=== PATIENT | male | born 1950 | race Caucasian/White ===

== ENCOUNTER → 2018-04-11 09:22 | Outpatient (CLI) | payer MEDICARE, OTHER ==
[2016-01-28 10:30] VITALS: BMI 35.0
[~2018-04-11 09:22] MED LIST: ASPIRIN EC81 M1 PO; ASPIRIN325 MG PO; BRILINTA90 MG PO; CALTRATE 600 M600 M1 PO; DICLOFENAC SODI50 MG PO; HYDROCODONE-APA1 TAB PO; LEVOTHROID112 MCG PO; LISINOPRIL2.5 MG PO; ONGLYZA5 MG PO; PRILOSEC20 MG PO; PRINIVIL20 MG PO; ROCALTROL0.25 MCG PO; ROCALTROL0.5 MCG PO; SYNTHROID100 MCG PO; TENORMIN50 MG PO; THEREMS-M1 TAB PO
== END | disposition home or self-care (01) ==
LOC: D.MRI 04-10 11:30
DX: M50.00 Cervical disc disorder with myelopathy, unspecified cervical region (principal)

== ENCOUNTER → 2018-12-20 07:36 | Outpatient (CLI) | payer MEDICARE, OTHER ==
[2016-01-28 10:30] VITALS: BMI 35.0
--- NOTE | 2018-12-23 09:50 | ST ---
PATIENT:ADAM JIMÉNEZ MEDICAL RECORD: [id number] SEX: M LOCATION:[facility] ORDER #: ADMISSION DATE: 12/20/18 AGE OF PATIENT: 68 REFERRING PHYSICIAN: INTERPRETING PHYSICIAN: RENETTA IRVIN MD DATE OF SERVICE: 12/20/2018 Nuclear Stress Test INDICATION: Angina, coronary artery disease, shortness of breath, hypertension, and hyperlipidemia. He was exercised on standard Lexiscan protocol with 27 mCi of sestamibi injected at peak stress, 9 mCi were used previously for rest images. FINDINGS: Gated SPECT reveals preserved ejection fraction at 59% with good wall motion and thickening and brightening throughout all segments. SPECT imaging Cardiolite was used as myocardial fusion agent. There is homogeneous uptake throughout all segments at rest and stress with no evidence of inducible ischemia or previous infarction. OVERALL IMPRESSION: 1. This is a normal nuclear stress test with no evidence of inducible ischemia or previous infarction. 2. Gated SPECT reveals a preserved ejection fraction at 59%. In this patient with ongoing symptomatology, the current scan does not suggest the presence of hemodynamically significant coronary artery disease. Evaluate noncardiac etiology of chest pain. TRANSINT:[id number] Voice Confirmation ID: [id number] DOCUMENT ID: [id number] RENETTA IRVIN MD at 0950 CC: NOEMI MIXON [id number] DICTATION DATE: 12/20/18 1419 APPRAISAL TECHNICIAN: 12/21/18 0027 [facility] CLI 12/20/18 [place] [id number] [place] [id number]
== END | disposition home or self-care (01) ==
LOC: D.HCCARDIO 07:36
PROVIDERS: ATTEND Internal Medicine Interventional Cardiology
DX: I25.10 Atherosclerotic heart disease of native coronary artery without angina pectoris (principal)

== ENCOUNTER 2019-01-08 07:19 | Day surgery (SDC) | payer MEDICARE, OTHER ==
[2019-01-03 15:19] LABS: BASOPHILS 0.5 % (0-2); HEMATOCRIT 38.7 % (42.0-54.0); HEMOGLOBIN 13.3 g/dL (13.5-17.5); IMMATURE GRANULOCYTES 1.4 % (0-5); LYMPHOCYTES 28.7 % (15-50); MCH 30.9 pg (26.0-34.0); MCHC 34.4 g/dL (31.0-37.0); MEAN PLATELET VOLUME 9.8 fL (7.4-10.4); MONOCYTES 10.3 % (2-11); NEUTROPHILS 57.1 % (40-80); PLATELET COUNT 272 10x3/uL (130-400); RDW 13.7 % (11.5-14.5); WBC 10.8 10x3/uL (4.8-10.8)
[2019-01-03 15:37] LABS: ANION GAP 11.5 mmol/L (8-16); CALCIUM 9.1 mg/dL (8.5-10.1); CARBON DIOXIDE 30.1 mmol/L (21.0-32.0); CREATININE - SERUM 1.3 mg/dL (0.6-1.3); POTASSIUM - SERUM 4.6 mmol/L (3.5-5.1)
[~2019-01-08] VITALS: Ht 185.4 cm; Wt 127.0 kg
[~2019-01-08 07:19] MED LIST changes: +LANTUS INSULIN10 ML SC; +METFORMIN HCL500 M1 PO; +NOVOLIN 70/30 110 ML SC
[2019-01-08] MEDS ORDERED: NOVOLOG100 UNIT/1 SC (08:52)
[2019-01-08 08:58] VITALS: BP 115/56; Ht 185.4 cm; Wt 127.0 kg
== END 2019-01-08 13:45 | disposition home or self-care (01) ==
LOC: D.OPS 07:19 → D.PAN 09:30 → D.OPS 13:45
PROVIDERS: ATTEND Orthopaedic Surgery
DX: M65.321 Trigger finger, right index finger (principal); Z01.812 Encounter for preprocedural laboratory examination

== ENCOUNTER 2019-02-13 05:20 | Day surgery (SDC) | payer MEDICARE, OTHER ==
[2019-02-12 10:32] LABS: HEMATOCRIT 42.4 % (42.0-54.0); HEMOGLOBIN 14.6 g/dL (13.5-17.5); MCH 30.4 pg (26.0-34.0); MCHC 34.4 g/dL (31.0-37.0); MCV 88.3 fL (80.0-100.0); MEAN PLATELET VOLUME 9.7 fL (7.4-10.4); PLATELET COUNT 276 10x3/uL (130-400); RDW 13.6 % (11.5-14.5); WBC 11.6 10x3/uL (4.8-10.8)
[2019-02-12 10:42] LABS: ANION GAP 12.3 mmol/L (8-16); CALCIUM 10.2 mg/dL (8.5-10.1); CARBON DIOXIDE 29.5 mmol/L (21.0-32.0); CREATININE - SERUM 1.5 mg/dL (0.6-1.3); POTASSIUM - SERUM 4.8 mmol/L (3.5-5.1)
[2019-02-12 16:01] LABS: LYMPHOCYTES 40 % (15-50); MONOCYTES 2 % (2-11); NEUTROPHILS 58 % (40-80); PLATELET ESTIMATE NORMAL
[~2019-02-13] VITALS: Ht 185.4 cm; Wt 127.0 kg
[~2019-02-13 05:20] MED LIST changes: +NOVOLOG100 UNIT/1 SC; +NOVOLOG100 UNIT/1 SQ
[2019-02-13 06:55] VITALS: BP 108/63; Ht 185.4 cm; Wt 127.0 kg
--- NOTE | 2019-02-13 07:56 | NUR ---
PILLOW UNDER LEFT SIDE TO TAKE PRESSURE OFF RIGHT SHOULDER
--- NOTE | 2019-02-13 09:29 | NUR ---
0922 IV DC'D. CATHETER TIP INTACT. PRESSURE HELD UNTIL BLEEDING CEASED. BANDAID APPLIED.
== END 2019-02-13 09:33 | disposition home or self-care (01) ==
LOC: D.OPS 05:20 → D.PAN 07:30 → D.OPS 07:30
PROVIDERS: Anesthesiology; ATTEND Orthopaedic Surgery
DX: M65.321 Trigger finger, right index finger (principal); Z01.812 Encounter for preprocedural laboratory examination

== ENCOUNTER 2019-06-10 18:18 | Inpatient (IN) | payer MEDICARE, OTHER ==
[~2019-06-10] VITALS: Ht 185.4 cm; Wt 129.5 kg
--- NOTE | ~2019-06-10 | EC ---
PATIENT:ADAM JIMÉNEZ DATE OF SERVICE: 06/10/19 SEX: M MEDICAL RECORD: [id number] DATE OF : [birth year] LOCATION:D.M2 D.210 AGE OF PATIENT: 69 ADMISSION DATE: 06/10/19 REFERRING PHYSICIAN: INTERPRETING PHYSICIAN: RENETTA BROWN MD ECHOCARDIOGRAM REPORT ECHO CHARGES 4 ECHO COMPLETE Date: 06/12/19 CLINICAL DIAGNOSIS: SOB ECHOCARDIOGRAPHIC MEASUREMENTS (adult normal given) AC root (d.<3.7cm) 3.3 cm LV Septum d (<1.2 cm> 1.2 cm Valve Excursion 1.7 cm LV Septum (systole) 1.9 cm Left Atria (s.<4.0cm> 4.1 cm LVPW d(<1.2cm) 1.4 cm RV (d.<2.3cm) 3.5 cm LVPW (sytole) 2.2 cm LV diastole(<5.6CM) 5.7 cm MV E-F(>70mm/sec) cm LV systole 3.4 cm LVOT Diameter 1.9 cm MV exc.(>10mm) cm Est.ejection fraction (50-75%) % DOPPLER: LVIT cm/sec A 53.0 cm/sec E 122 cm/sec LA cm/sec RVSP 26.1 mmHg LVOT 75.0 cm/sec AOP1/2T m/s Asc. Ao 172 cm/sec RVOT 49.0 cm/sec RA cm/sec PA 74.0 cm/sec AV Gradient Peak 12.0 mmHg AV Mean 6.4 mmHg AV Area 1.1 cm MV Gradient Peak 7.0 mmHg MV Mean 2.2 mmHg MV Area cm COMMENTS: Deli Associate: Godfrey SHERWOODOE Web Methods Developer: 1 Dr. Brown TAPE# PACS Pericardial Effusion N DATE OF SERVICE: 06/12/2019 FINDINGS: 1. Left ventricular chamber size is mildly dilated. Left ventricular systolic function is preserved at 50% to 55%. 2. Left atrium is enlarged at 4.1 cm. Right atrium and right ventricular chamber sizes are as well mildly dilated. 3. Valvular structures have normal structure and motion. 4. Doppler interrogation reveals no significant valvular insufficiency or stenosis. Pulmonary systolic pressure is estimated at 26 mmHg. ECHOCARDIOGRAM REPORT [id number] DAAM JIMÉNEZ 5. No evidence of pericardial effusion or left ventricular thrombus. TRANSINT:[id number] Voice Confirmation ID: [id number] DOCUMENT ID: [id number] RENETTA BROWN MD CC: [id number] DICTATION DATE: 06/13/19 1309 ASIAN STUDIES PROGRAM CHAIR: 06/13/19 1722 ADM IN [facility] [address] [place] [address]
[2019-06-10 18:56] LABS: BASOPHILS 0.2 % (0-2); EOSINOPHILS 0.1 % (0-7); HEMATOCRIT 42.6 % (42.0-54.0); HEMOGLOBIN 14.1 g/dL (13.5-17.5); LYMPHOCYTES 7.6 % (15-50); MCH 29.8 pg (26.0-34.0); MCHC 33.1 g/dL (31.0-37.0); MCV 90.1 fL (80.0-100.0); MEAN PLATELET VOLUME 9.7 fL (7.4-10.4); MONOCYTES 12.6 % (2-11); NEUTROPHILS 78.5 % (40-80); PLATELET COUNT 278 10x3/uL (130-400); RBC 4.73 10x6/uL (4.20-6.10); RDW 14.1 % (11.5-14.5); WBC 19.5 10x3/uL (4.8-10.8)
[2019-06-10 18:58] LABS: APTT 30.3 SECONDS (22.8-39.4); INR 1.11 (0.85-1.17); PROTIME 13.8 SECONDS (11.6-15.0)
[2019-06-10 19:04] LABS: CALC OSMOLALITY 279 mosm/kg (275-300); CALCIUM 8.1 mg/dL (8.5-10.1); CARBON DIOXIDE 24.6 mmol/L (21.0-32.0); CHLORIDE - SERUM 99 mmol/L (98-107); CREATININE - SERUM 1.6 mg/dL (0.6-1.3); GLUCOSE 175 mg/dL (74-106); POTASSIUM - SERUM 4.7 mmol/L (3.5-5.1); SODIUM 135 mmol/L (136-145); UREA NITROGEN 29 mg/dL (7-18); eGFR NON AFRICAN AMERICAN 46 mL/min (90-120)
[2019-06-10 19:21] LABS: ALBUMIN 3.8 g/dL (3.4-5.0); ALKALINE PHOSPHATASE 104 U/L (46-116); ALT (SGPT) 41 U/L (10-68); BILIRUBIN - TOTAL 1.25 mg/dL (0.2-1.3); CKMB 3.5 U/L (0.0-3.6); CREATINE KINASE 207 UL (21-232); PRO BNP 55 pg/mL (0-125); PROTEIN - SERUM 7.6 g/dL (6.4-8.2)
[2019-06-10 19:22] LABS: TROPONIN-I < 0.017 ng/mL (0.000-0.060)
[2019-06-10 20:25] LABS: APPEARANCE CLEAR (CLEAR); BILIRUBIN NEGATIVE (NEGATIVE); COLOR YELLOW (YELLOW); GLUCOSE 50 mg/dL (NEGATIVE); KETONE NEGATIVE (NEGATIVE); NITRITE NEGATIVE (NEGATIVE); PROTEIN TRACE mg/dL (NEGATIVE); SPECIFIC GRAVITY 1.025 (1.005-1.020); UROBILINOGEN NORMAL (NORMAL)
[2019-06-10 22:30] VITALS: BP 127/51
[2019-06-11 01:21] VITALS: BP 127/68
[2019-06-11 04:00] VITALS: BP 130/67
[2019-06-11 04:41] LABS: BASOPHILS 0.1 % (0-2); EOSINOPHILS 0 % (0-7); HEMATOCRIT 39.4 % (42.0-54.0); HEMOGLOBIN 13.1 g/dL (13.5-17.5); IMMATURE GRANULOCYTES 0.8 % (0-5); LYMPHOCYTES 7.5 % (15-50); MCH 30.2 pg (26.0-34.0); MCHC 33.2 g/dL (31.0-37.0); MCV 90.8 fL (80.0-100.0); MEAN PLATELET VOLUME 9.8 fL (7.4-10.4); MONOCYTES 4.1 % (2-11); NEUTROPHILS 87.5 % (40-80); PLATELET COUNT 245 10x3/uL (130-400); RBC 4.34 10x6/uL (4.20-6.10); RDW 14.1 % (11.5-14.5); WBC 17.7 10x3/uL (4.8-10.8)
[2019-06-11 05:09] LABS: ALBUMIN 3.3 g/dL (3.4-5.0); ANION GAP 14.5 mmol/L (8-16); BILIRUBIN - TOTAL 1.38 mg/dL (0.2-1.3); CALCIUM 7.9 mg/dL (8.5-10.1); CARBON DIOXIDE 24.9 mmol/L (21.0-32.0); CREATININE - SERUM 1.6 mg/dL (0.6-1.3); POTASSIUM - SERUM 4.4 mmol/L (3.5-5.1); PROTEIN - SERUM 7.6 g/dL (6.4-8.2)
--- NOTE | 2019-06-11 06:02 | NUR ---
PT RECEIVED SLEEPING IN BED WITH CPAP ON. FAMILY SLEEPING AT BEDSIDE. IV INFUSING. CALL LIGHT CLOSE.
[2019-06-11 07:59] VITALS: BP 132/68
[2019-06-11 11:23] VITALS: BP 115/41
[2019-06-11 15:47] VITALS: BP 114/53
--- NOTE | 2019-06-11 19:33 | NUR ---
EVENING ROUNDS COMPLETE, PT LAYING IN BED, NO SIGNS OF DISTRESS. AAOX4, PT DENIES ANY PAIN OR NEEDS AT THIS TIME. CL IN REACH, BED IN LOWEST POSITION.
[2019-06-11 20:00] VITALS: BP 109/50
[2019-06-12 01:08] VITALS: BP 96/49
[2019-06-12 05:20] LABS: BASOPHILS 0.2 % (0-2); EOSINOPHILS 0.5 % (0-7); HEMATOCRIT 35.7 % (42.0-54.0); HEMOGLOBIN 11.9 g/dL (13.5-17.5); LYMPHOCYTES 25.9 % (15-50); MCH 30.4 pg (26.0-34.0); MCHC 33.3 g/dL (31.0-37.0); MCV 91.3 fL (80.0-100.0); MONOCYTES 11.9 % (2-11); NEUTROPHILS 60.5 % (40-80); PLATELET COUNT 246 10x3/uL (130-400); RBC 3.91 10x6/uL (4.20-6.10); RDW 14.5 % (11.5-14.5)
[2019-06-12 05:32] VITALS: BP 101/49
[2019-06-12 05:43] LABS: CALCIUM 8.3 mg/dL (8.5-10.1); CARBON DIOXIDE 25.1 mmol/L (21.0-32.0); CHOL - HDL RATIO 3.4 ratio (2.3-4.9); CREATININE - SERUM 1.3 mg/dL (0.6-1.3); POTASSIUM - SERUM 4.1 mmol/L (3.5-5.1)
--- NOTE | 2019-06-12 07:22 | NUR ---
PT RECEIVED SLEEPING IN BED. WOKE WITH VOICE AND BEDSIDE REPORT GIVEN. NO COMPLAINTS OR NEEDS AT PRESENT.
--- NOTE | 2019-06-12 07:46 | HP ---
PATIENT: ADAM JIMÉNEZ MEDICAL RECORD: [id number] ACCOUNT: [id number] LOCATION:[address] : [birth year] ADMISSION DATE: 06/10/19 PCP: NOEMI MIXON MD HISTORY AND PHYSICAL EXAMINATION REASON FOR ADMISSION: Nausea, headache, abdominal pain, and shortness of breath. HISTORY OF PRESENT ILLNESS: The patient is a 69-year-old male with history of diabetes mellitus and CAD. 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 He pulled into a gas station and drank some water and became more nausea and developed a severe frontal headache. His was with him and she broke brought him back to [place]. His headache improved somewhat. In fact, he went to [facility] to have a birthday republican with his grandson, but could not eat. After the republican he told his that he needs to go to the ED. He also had some vague right upper quadrant discomfort. He had normal bowel movement that day and he denied any jac vomiting, but did retch. He denies any recent tick bites. Denies any fever. No history of migraines. Additionally, he has had trouble with exertional shortness of breath. He said he gets tightness in his chest when he walks a distance. He had a negative Cardiolite stress test by Dr. Brown in December of this year, prior to trigger finger release. PAST MEDICAL HISTORY: Type 2 diabetes mellitus, hyperparathyroidism post-parathyroidectomy, hypertension, hyperlipidemia, obesity, hypocalcemia postoperative, hypothyroidism, osteoarthritis, CAD post-PTCA in 2012. SURGICAL HISTORY: He had a gastric bypass with incidental cholecystectomy. He has had rotator cuff repair, release of hand scar flexure contraction, parathyroidectomy, recent trigger finger release, carpal tunnel release, a remote left ankle bimalleolar fracture with repair. FAMILY HISTORY: Parents are . History of heart disease in the family and hypertension. SOCIAL HISTORY: Nonsmoker, nondrinker. He is , retired . He gets most of his healthcare at the [facility] clinic in [place]. CURRENT MEDICATIONS: Lantus 20 units subQ q.p.m., diclofenac 50 mg p.o. b.i.d. p.c., metformin ER 500 mg b.i.d., levothyroxine 200 mcg p.o. q.a.m., atenolol 50 mg a day, sliding scale regular insulin as directed, cyclobenzaprine 10 mg at bedtime p.r.n., tamsulosin 0.4 at bedtime, omeprazole 20 mg a day, atorvastatin 20 mg at bedtime, aspirin 81 mg a day. REVIEW OF SYSTEMS: CONSTITUTIONAL: [place] well until onset of symptoms. Denies fever. HEENT: No recent visual change, sinus congestion, or sore throat. RESPIRATORY: Has mild exertional shortness of breath with chest tightness on exertion. Intermittent cough, nonproductive. CARDIAC: Exertional chest tightness, but he would not describe angina. No palpitations, PND, orthopnea, claudication. GASTROINTESTINAL: Marked nausea with retching today. No change in stools or blood per rectum. Some vague right upper quadrant pain. GENITOURINARY: Nocturia once nightly. HISTORY AND PHYSICAL [id number] ADAM JIMÉNEZ ENDOCRINE: Denies polyuria, polydipsia, heat or cold intolerance. NEUROLOGIC: No history of stroke, TIA, vascular headaches, or seizures. INTEGUMENT: No rash or itching. PHYSICAL EXAMINATION: GENERAL: Alert male, appears moderately ill. VITAL SIGNS: Blood pressure 140/80, heart rate is 90 and regular, he is afebrile, sats 95% on room air. HEENT: Normocephalic. Eyes are clear. NECK: No bruits or masses. CHEST: Clear without wheeze or rales. Chest wall is nontender. HEART: Regular without murmur. ABDOMEN: Obese, mildly tender in the right upper quadrant. Liver edge appears enlarged. GENITOURINARY: Deferred. EXTREMITIES: He has postoperative surgical changes in both hands and shoulders. NEUROLOGIC: He is oriented to person, place, and time. Cranial nerves intact. Gait is normal. Memory is intact. NECK: Supple. LABORATORY DATA: His white count was over 20,000 on admission without identifiable source. DIAGNOSTIC DATA: CT of the head was unremarkable. Chest x-ray was clear. Emergency Room physician cultured the patient, placed him on Rocephin and Zithromax. ASSESSMENT: Intractable nausea with crescendo headache, etiology unknown; leukocytosis, etiology unknown; DOMINGUEZ; CAD; AODM; history of hypothyroidism; history of hyperparathyroidism. PLAN: The patient will be given IV fluids. We will hold metformin due to mildly elevated creatinine. We will check abdominal CT with contrast concerning abdominal pain and leukocytosis. Further workup pending clinical course. TRANSINT:[id number] Voice Confirmation ID: [id number] DOCUMENT ID: [id number] NOEMI MIXON MD at 0746 CC: [id number] DICTATION DATE: 06/11/19 08 DIAGNOSTIC IMAGING MANAGER: 06/11/19 1129 ADM IN [place] [id number] [place] [address]
[2019-06-12 08:25] LABS: CKMB 6.1 U/L (0.0-3.6)
[2019-06-12 08:41] LABS: TROPONIN-I 0.066 ng/mL (0.000-0.060)
[2019-06-12 08:57] VITALS: Ht 185.4 cm; Wt 129.5 kg
[2019-06-12 10:39] VITALS: BP 128/71
[2019-06-12 13:19] VITALS: BP 129/78
[2019-06-12 18:10] VITALS: BP 118/68
[2019-06-12 21:28] VITALS: BP 123/75
[2019-06-13] VITALS: BP 123/61
[2019-06-13 04:00] VITALS: BP 138/67
[2019-06-13 04:44] LABS: BASOPHILS 0.5 % (0-2); EOSINOPHILS 1.5 % (0-7); HEMATOCRIT 38.5 % (42.0-54.0); HEMOGLOBIN 12.5 g/dL (13.5-17.5); IMMATURE GRANULOCYTES 1.8 % (0-5); LYMPHOCYTES 33.1 % (15-50); MCH 29.8 pg (26.0-34.0); MCHC 32.5 g/dL (31.0-37.0); MCV 91.7 fL (80.0-100.0); MEAN PLATELET VOLUME 9.8 fL (7.4-10.4); MONOCYTES 13.6 % (2-11); NEUTROPHILS 49.5 % (40-80); PLATELET COUNT 254 10x3/uL (130-400); RDW 14.2 % (11.5-14.5); WBC 10.8 10x3/uL (4.8-10.8)
[2019-06-13 04:53] LABS: CALCIUM 8.8 mg/dL (8.5-10.1); CREATININE - SERUM 1.3 mg/dL (0.6-1.3)
--- NOTE | 2019-06-13 07:43 | NUR ---
PT RECEIVED LAYING IN BED, AT BEDSIDE AND DR MIXON IN ROOM AT PRESENT. NPO WITHOUT CAFFEINE FOR NOW TILL STRESS TEST.
[2019-06-13 13:21] VITALS: BP 137/68
[2019-06-13 17:19] VITALS: BP 133/57
--- NOTE | 2019-06-13 19:24 | NUR ---
RECEIVED UP IN BED WITH EYES OPEN AND TV ON. ALERT AND ORIETNED X4. UP AD DONOVAN TO B/R. IV TO LEFT FA WITH NS AT 75CC/HR. TELEMETRY IN PLACE. EDUCATED ON DIABETES S/S OF HYPO AND HYPERGLYCEMIA. VOICED UNDERSTANDING. DENIES ANY OTHER NEEDS.
[2019-06-13 20:30] VITALS: BP 143/53
[2019-06-14 00:30] VITALS: BP 153/75
[2019-06-14 06:42] VITALS: BP 127/65
--- NOTE | 2019-06-14 07:36 | NUR ---
PT RESTING PEACEFULLY WHEN I ENTERED, RESPIRATIONS EVEN/REGULAR AND UNLABORED. NO SIGNS OR SYMPTOMS OF ACUTE DISTRESS NOTED AT THIS TIME. CL IN REACH, SRX2. NO FAMILY PRESENT AT BEDSIDE.
[2019-06-14 08:06] VITALS: BP 137/59
[2019-06-14] MEDS ORDERED: ZITHROMAX250 MG PO (09:00)
--- NOTE | 2019-06-14 09:26 | NUR ---
PT STATES HE HAS HAD HIS FLU SHOT THIS YEAR.
--- NOTE | 2019-06-14 09:56 | MORECARE ---
CASE MANAGEMENT DISCHARGE SUMMARY PATIENT: ADAM JIMÉNEZ UNIT: [id number] ADM DATE: 06/10/19 AGE: 69 : [birth year] SEX: M ROOM/BED: D.2107 AUTHOR: JOHN ASHRAF PHYSICIAN: REFERRING PHYSICIAN: NOEMI MIXON MD DATE OF SERVICE: 06/14/19 Discharge Plan Patient Name: ADAM JIMÉNEZ [facility] [facility] 1950 Planned Disposition: Home Anticipated Discharge Date: Discharge Date: Expected LOS: Initial Reviewer: [email or web address] Initial Review Date: 06/10/2019 Generated: 06/14/19 10:55 am Coverage Notice Reviewer: [email or web address] - Trupti Garcia Notice Issued Date-Time: 06/14/2019 9:30 Notice Type: IM Discharge Notice Notice Delivered To: Patient Relationship to Patient: Marketing Operations Specialist Name: Delivery Method: HAND - Hand Delivered Romi Days: Prior Verbal Notification: Recipient Understood Notice: Recipient Signature: Med Rec Note Co-signed by Attending: Coverage Notice Comment: Patient Name: ADAM JIMÉNEZ Page [phone] at 0956 All edits/amendments must be made on the electronic document DICTATION DATE: 06/14/19954 BULL FIDDLE PLAYER: SAVAGE 06/14/19954 RPT#: [id number] DC DATE: STATUS: ADM IN [facility] [address] [place] [address] END OF REPORT
--- NOTE | 2019-06-14 09:58 | NUR ---
I/V OUT TIP INTACT, NO COMPLAINTS OR CONCERNS, STATES THAT HIS WILL BE HERE "IN A BIT". CL IN REACH, SRX2.
--- NOTE | 2019-06-14 10:02 | MORECARE ---
CASE MANAGEMENT DISCHARGE SUMMARY PATIENT: ADAM JIMÉNEZ UNIT: [id number] ADM DATE: 06/10/19 AGE: 69 : 49 SEX: M ROOM/BED: D.2107 AUTHOR: JOHN ASHRAF PHYSICIAN: REFERRING PHYSICIAN: NOEMI MIXON MD DATE OF SERVICE: 06/14/19 Discharge Plan Patient Name: ADAM JIMÉNEZ Facility: [facility]:[place] : 1950 Planned Disposition: Home Anticipated Discharge Date: Discharge Date: Expected LOS: Initial Reviewer: [email or web address] Initial Review Date: 06/10/2019 Generated: 06/14/19 11:02 am Comments DCP- Discharge Planning Updated by [email or web address]: Trupti Garcia on 06/14/19 8:[address] DC PLAN: Return home with is . ANTICIPATED DC NEEDS: Denied dc needs. Discharge order received. DC IMM delivered, explained, signed by the patient, and placed in his chart. Signed form also left with patient. Patient reports living at with his and reports he is independent in his care. Patient plans to return home with his and feels this is a safe discharge. CM discussed availability of home health, rehab services, and medical equipment. Patient denied known discharge needs at this time. Transportation provider at discharge will be his . CM will continue to follow and will assist as needed with dc plans/needs. Trupti Garcia RN, [facility] Coverage Notice Reviewer: [email or web address] - Trupti Garcia Notice Issued Date-Time: 06/14/2019 9:30 Notice Type: IM Discharge Notice Notice Delivered To: Patient Relationship to Patient: Marine Insulator Name: Delivery Method: HAND - Hand Delivered Romi Days: Prior Verbal Notification: Recipient Understood Notice: Recipient Signature: Med Rec Note Co-signed by Attending: Coverage Notice Comment: Last DP export: 06/14/19 8:56 Patient Name: ADAM JIMÉNEZ Page [phone] at 1002 All edits/amendments must be made on the electronic document DICTATION DATE: 06/14/19 1002 CLINIC SPECIALIST: SAVAGE 06/14/19 1002 RPT#: [id number] DC DATE: STATUS: ADM IN [facility] [address] [place] [address] END OF REPORT
--- NOTE | 2019-06-14 11:02 | NUR ---
PT ESCORTED OUT VIA WHEELCHAIR TO POV, DRIVING. THANKS US ALL FOR WONDERFUL CARE.
--- NOTE | 2019-06-14 15:29 | MORECARE ---
CASE MANAGEMENT DISCHARGE SUMMARY PATIENT: ADAM JIMÉNEZ UNIT: [id number] ADM DATE: 06/10/19 AGE: 69 : 49 SEX: M ROOM/BED: D.2107 AUTHOR: JOHN ASHRAF PHYSICIAN: REFERRING PHYSICIAN: NOEMI MIXON MD DATE OF SERVICE: 06/14/19 Discharge Plan Patient Name: ADAM JIMÉNEZ Facility: [facility]:[place] : 1950 Planned Disposition: Home Anticipated Discharge Date: Discharge Date: 06/14/2019 Expected LOS: Initial Reviewer: [email or web address] Initial Review Date: 06/10/2019 Generated: 06/14/19 4:29 pm Comments DCP- Discharge Planning Updated by [email or web address]: Trupti Garcia on 06/14/19 8:[address] DC PLAN: Return home with is . ANTICIPATED DC NEEDS: Denied dc needs. Discharge order received. DC IMM delivered, explained, signed by the patient, and placed in his chart. Signed form also left with patient. Patient reports living at with his and reports he is independent in his care. Patient plans to return home with his and feels this is a safe discharge. CM discussed availability of home health, rehab services, and medical equipment. Patient denied known discharge needs at this time. Transportation provider at discharge will be his . CM will continue to follow and will assist as needed with dc plans/needs. Trupti Garcia RN, [facility] Coverage Notice Reviewer: [email or web address] - Trupti Garcia Notice Issued Date-Time: 06/14/2019 9:30 Notice Type: IM Discharge Notice Notice Delivered To: Patient Relationship to Patient: Roughener Name: Delivery Method: HAND - Hand Delivered Romi Days: Prior Verbal Notification: Recipient Understood Notice: Recipient Signature: Med Rec Note Co-signed by Attending: Coverage Notice Comment: Last DP export: 06/14/19 9:02 Patient Name: ADAM JIMÉNEZ Page [phone] at 1529 All edits/amendments must be made on the electronic document DICTATION DATE: 06/14/19 1529 COOKIE PADDER: SAVAGE 06/14/19 1529 RPT#: [id number] DC DATE:06/14/19 STATUS: DIS IN [facility] [address] [place] [address] END OF REPORT
== END 2019-06-14 11:02 | disposition home or self-care (01) | DRG 866 ==
LOC: D.ER 18:18 → D.M2 21:23 → D.ER 21:40 → UNDODEPER 06-12 21:23 → D.M2 06-14 11:02
PROVIDERS: Family Medicine; ADMIT Family Medicine; ATTEND Family Medicine
DX: B34.9 Viral infection, unspecified (principal); J06.9 Acute upper respiratory infection, unspecified; I25.10 Atherosclerotic heart disease of native coronary artery without angina pectoris; E11.22 Type 2 diabetes mellitus with diabetic chronic kidney disease; I12.9 Hypertensive chronic kidney disease with stage 1 through stage 4 chronic kidney disease, or unspecified chronic kidney disease; N18.9 Chronic kidney disease, unspecified; E78.5 Hyperlipidemia, unspecified; E66.9 Obesity, unspecified; E03.9 Hypothyroidism, unspecified; R51 Headache; R07.9 Chest pain, unspecified